=== PATIENT | female | born 1995 | race Caucasian/White ===

== ENCOUNTER 2023-06-06 11:40 | Emergency (ER) | payer OTHER ==
[2023-06-06 11:48] VITALS: BP 128/81; PULSE 95; RESP 18; TEMP 98; BMI 23.3
[2023-06-06] MEDS ORDERED: ACETAMINOPHEN 325 MG TABLET (FP) ONE (13:15)
[2023-06-06] MEDS: ACETAMINOPHEN 325 MG TABLET (FP) PO ONE (13:23)
== END 2023-06-06 15:05 | disposition home or self-care (01) ==
LOC: JER 11:40
DX: R07.89 Other chest pain (principal); G44.209 Tension-type headache, unspecified, not intractable; M94.0 Chondrocostal junction syndrome [Tietze]
CPT/HCPCS: 93005; 93010; 99283-25